=== PATIENT | female | born 1985 | race Caucasian/White ===

== ENCOUNTER 2020-02-21 05:49 | Outpatient (RCR) | payer OTHER ==
[~2020-02-21] VITALS: Ht 157 cm; Wt 100.0 kg
[~2020-02-21 05:49] MED LIST: CHOL40002 PO; CYAN100T IM; D50KC PO; FRS325T PO; MTF500T PO; OXYC-12 PO; PNV1CAPS13 PO; VITAMIN B12 IM; [UNRECOGNIZED DRUG - CODE]; [UNRECOGNIZED DRUG - CODE]; [UNRECOGNIZED DRUG - CODE]
== END 2020-02-21 13:07 | disposition home or self-care (01) ==
LOC: PREOP 05:49
PROVIDERS: ATTEND Obstetrics & Gynecology
DX: Z01.818 Encounter for other preprocedural examination (principal)

== ENCOUNTER 2020-03-10 05:39 | Outpatient (CLI) | payer OTHER ==
[~2020-03-10] VITALS: Ht 157 cm; Wt 100.0 kg
== END 2020-03-10 11:39 | disposition home or self-care (01) ==
LOC: PREOP 05:39
PROVIDERS: ATTEND Obstetrics & Gynecology
DX: Z01.818 Encounter for other preprocedural examination (principal)

== ENCOUNTER 2020-03-18 08:05 | Day surgery (SDC) | payer OTHER, BC ==
[~2020-03-18] VITALS: Ht 157 cm; Wt 100.0 kg
[2020-03-18] VITALS (13 sets, daily range): BP systolic 108–124; BP diastolic 53–85
[2020-03-18] MEDS ORDERED: LEVOFLOXACIN 250 MG/50 ML IVPB 50 ML IV ONE (08:30)
[2020-03-18] MEDS: LACTATED RINGERS 1,000 ML IV PRN ×2 (08:31→12:01)
[2020-03-18 08:52] LABS: BASOPHILS % (AUTO) 0 % (0-10); EOSINOPHILS # (AUTO) 0.1 10^3/uL (0.0-0.3); EOSINOPHILS % (AUTO) 2 % (0-10); HEMATOCRIT 37 % (35-52); HEMOGLOBIN 12.7 G/DL (11.5-16.0); LYMPHOCYTES # (AUTO) 1.7 X 10^3 (1.0-4.0); LYMPHOCYTES % (AUTO) 27 % (12-44); MEAN CORPUSCULAR HEMOGLOBIN 27 PG (25-34); MEAN CORPUSCULAR HGB CONC 34 G/DL (32-36); MEAN CORPUSCULAR VOLUME 79 FL (80-99); MEAN PLATELET VOLUME 9.4 FL (7.4-10.4); MONOCYTES # (AUTO) 0.7 X 10^3 (0.0-1.0); MONOCYTES % (AUTO) 11 % (0-12); NEUTROPHILS # (AUTO) 3.7 X 10^3 (1.8-7.8); NEUTROPHILS % (AUTO) 60 % (42-75); PLATELET COUNT 369 10^3/uL (130-400); WHITE BLOOD COUNT 6.2 10^3/uL (4.3-11.0)
[2020-03-18] MEDS ORDERED: BUP/EPI 0.25% 1:200,000 (MARCAINE) 30 ML VIAL ONE (10:14)
[2020-03-18] MEDS ORDERED: proPOfol 200 MG/20 ML (DIPRIVAN) VIAL IV ONE (10:17)
[2020-03-18] MEDS ORDERED: LIDOCAINE PF 2% 5 ML (XYLOCAINE) VIAL ONE (10:17)
[2020-03-18] MEDS ORDERED: MIDAZOLAM 2 MG/2 ML (VERSED) VIAL ONE (10:17)
[2020-03-18] MEDS ORDERED: SEVOFLURANE (ULTANE) 15 ML INHAL SOLN ONE ×5 (10:17→12:19)
[2020-03-18] MEDS ORDERED: ROCURONIUM 10 MG/ML 5 ML SYRINGE IV ONE (10:17)
[2020-03-18] MEDS ORDERED: fentaNYL INJECTION 100 MCG/2 ML AMP ONE (10:17)
[2020-03-18] MEDS ORDERED: ONDANSETRON 4 MG/2 ML (SDV) Z0FRAN ONE (10:19)
--- NOTE | 2020-03-18 10:19 | Progress Note-Pre Operative ---
Pre-Operative Progress Note H&P Reviewed The H&P was reviewed, patient examined and no changes noted. Date Seen by Provider: Mar 18, 2020 Time Seen by Provider: 10:18 Date H&P Reviewed: Mar 18, 2020 Time H&P Reviewed: 10:18 Pre-Operative Diagnosis: dub/cpp/menorrhagia ISACC DUPREE MD Mar 18, 2020 10:19
--- NOTE | 2020-03-18 10:20 | Progress Note-Post Operative ---
Post-Operative Progess Note Surgeon (s)/Director Of Ancillary Services (s) Surgeon ISACC DUPREE MD Director Of Ancillary Services: Christina Pre-Operative Diagnosis dub/cpp/menorrhagia Post-Operative Diagnosis same with path pending Procedure & Operative Findings Date of Procedure 03/18/20 Procedure Performed/Findings TLH/BS Anesthesia Type GETA Estimated Blood Loss Estimated blood loss (mL): minimal Specimens/Packing Specimens Removed uterus and tubes ISACC DUPREE MD Mar 18, 2020 10:20
[2020-03-18] MEDS ORDERED: KETOROLAC 30 MG/ML VIAL ONE (10:22)
[2020-03-18] MEDS ORDERED: OXYC1TAB87 PO (10:23)
[2020-03-18] MEDS ORDERED: DCS100C PO (10:23)
[2020-03-18] MEDS ORDERED: IBUP-1780 PO (10:23)
--- NOTE | 2020-03-18 10:25 | Discharge Inst-Surgical ---
Discharge Inst-Surgical Depart Medication/Instructions New, Converted or Re-Newed RX: RX on Chart Consults/Follow Up Patient Instructions: as directed Orders & Referrals Follow Up Appt: RTC on Monday at 0900 for staple removal Call to make follow up appt. for patient in 4 weeks. Activity: Rest for 24 hours, than as tolerated. Wound Care: May remove Band-Aid tomorrow. Replace as desired. Keep incisions clean and dry. Wash daily with soap and water. Please call in RX to patient pharmacy. Diet: As tolerated-Clear Liquids only if nauseated. shower or tub bathe as desired. No driving for 24 hours, no alcoholic beverages for 24 hours, and nothing per vagina (no tampons, douching, or intercourse) for 8 weeks. Patient to return to the clinic as soon as possible for: Temperature greater than 101F, Severe Pain, Foul discharge from incision or vagina, Excessive Bleeding (more than a period). Activity Activity as Tolerated: No Diet Discharge Diet: No Restrictions ISACC DUPREE MD Mar 18, 2020 10:25
[2020-03-18] MEDS ORDERED: PROMETHAZINE INJ 25 MG/ML (PHENERGAN) AMP IM PRN (10:30)
[2020-03-18] MEDS ORDERED: ONDANSETRON 4 MG/2 ML (SDV) Z0FRAN IVP PRN ×2 (10:30→12:45)
[2020-03-18] MEDS ORDERED: KETOROLAC 30 MG/ML VIAL IVP SCH (10:30)
[2020-03-18] MEDS ORDERED: ESTROGENS CONJ INJECTION 25 MG in WATER (STERILE) FOR INJECTION 5 ML IV ONE (10:30)
[2020-03-18] MEDS ORDERED: MEPERIDINE (DEMEROL) INJ 100 MG/ML IM PRN (10:30)
[2020-03-18] MEDS ORDERED: INDIGO CARMINE 8 MG/ML 5 ML AMP ONE ×2 (12:05→12:19)
[2020-03-18] MEDS ORDERED: FUROSEMIDE 40 MG/4 ML INJ (LASIX) ONE (12:05)
[2020-03-18] MEDS ORDERED: GLYCOPYRROLATE 0.2 MG/ML (ROBINUL) 2 ML VIAL ONE (12:06)
[2020-03-18] MEDS ORDERED: NEOSTIGMINE 3 MG/3 ML VIAL ONE (12:06)
[2020-03-18] MEDS ORDERED: HYDROmorphone 2 MG/ML VIAL (DILAUDID) ONE (12:14)
[2020-03-18] MEDS ORDERED: ESTROGENS CONJ IV 25 MG/5 ML (PREMARIN) VIAL ONE (12:44)
[2020-03-18] MEDS ORDERED: morphine INJ 10 MG/ML 1ML (SYR OR VIAL) ONE (12:44)
[2020-03-18] MEDS ORDERED: WATER (STERILE) FOR INJECTION 10 ML ONE (12:45)
[2020-03-18] MEDS ORDERED: HYDROmorphone 2 MG/ML VIAL (DILAUDID) IV ONE (12:45)
[2020-03-18] MEDS ORDERED: morphine INJ 10 MG/ML 1ML (SYR OR VIAL) IVP ONE (12:45)
--- NOTE | 2020-03-18 13:30 | NUR ---
VELVET BETTIE admitted to room 3306-1, with an admitting diagnosis of TOTAL LAP HYSTERECTOMY , on 03/18/20 from [facility] via , accompanied by .VELVET ALEXANDRE introduced to surroundings, call light, bed controls, phone, TV, temperature control, lights, meal times, smoking policy, visitor policy, side rail policy, bathrooms and showers. Patient Rights given to patient in the handbook.VELVET ALEXANDRE verbalizes understanding that [facility] is not responsible for the loss or damage to any personal effects or valuables that are kept in the patients posession during their hospitalization. The following Patient Care Plans were discussed with the : Discharge Planning, ,, and . VELVET ALEXANDRE verbalizes understanding of Interdisciplinary Patient Education. Patient and/or family were informed about the Rapid Response Team and its purpose.
--- NOTE | 2020-03-18 13:45 | NUR ---
INITIAL ASSESSMENT COMPLETED, S/O AT BEDSIDE, PT DENIES PAIN OR C/O, SEE INTERVENTIONS FOR DETAILED ASSESSMENTS, PLAN OF CARE DISCUSSED WITH PT AND S/O. WILL MONITOR CLOSELY.
--- NOTE | 2020-03-18 14:45 | NUR ---
REPORT TO MAMADOU HENRIQUEZ.
--- NOTE | 2020-03-18 14:54 | NUR ---
RT CALLED ABOUT NEW IS ORDER.
[2020-03-18] MEDS ORDERED: oxyCODONE/APAP 5/325MG (PERCOCET 5) TABLET ONE (14:57)
[2020-03-18] MEDS: oxyCODONE/APAP 5/325MG (PERCOCET 5) TABLET PO PRN (15:04)
--- NOTE | 2020-03-18 15:04 | NUR ---
PERCOCET 5/325 2 TABS P.O. FOR C/O PELVIC PAIN.
--- NOTE | 2020-03-18 15:36 | OPERATIVE REPORT ---
DATE OF SERVICE: 03/18/2020 PREOPERATIVE DIAGNOSES: Dysfunctional uterine bleeding, menorrhagia and pelvic pain and intrauterine mass. POSTOPERATIVE DIAGNOSES: Dysfunctional uterine bleeding, menorrhagia and pelvic pain and intrauterine mass with pathology pending. OPERATIVE PROCEDURE: Total laparoscopic hysterectomy with bilateral salpingectomies. OPERATIVE DESCRIPTION: With the patient in the supine position under satisfactory general anesthesia, she was repositioned in the dorsal lithotomy position in the [facility] and prepped and draped in the usual fashion for abdominal and vaginal surgery. Weighted speculum placed in posterior fornix of vagina, cervix exposed and grasped anteriorly with single tooth tenaculum. Uterus was sounded to 11 cm with uterine sound. The cervix was then serially dilated with Neel dilators to accommodate a Shelia II manipulator was placed using a 6 mm x 8 cm uterine probe and a 25 mm colpotomy ring. Sutures of #1 Vicryl placed at 3 and 9 o'clock position of the cervix to affix the uterus to the manipulator. Cabezas catheter was placed in the urinary bladder. The tenaculum and speculum were removed. The patient brought in low dorsal lithotomy position. A 12 mm incision was made 9 cm superior to the umbilicus. Veress needle was placed through that incision into the abdominal cavity. Correct placement confirmed with water drop test. The abdomen was insufflated with 2.4 liters of carbon dioxide. The Veress needle was removed and a 12 mm Optiview laparoscopic port placed. The patient was placed in Trendelenburg allowing the bowel spill out of the pelvis. The abdominal wall was transilluminated and 8 mm ports were placed through incisions of those sizes 9 cm lateral to the umbilicus at a level approximately 3 cm above the umbilicus. There were some adhesions of the omentum to the anterior abdominal wall extended pretty much clear across the anterior abdominal wall. These were light filmy. EndoShears were passed through the left lateral port and the adhesions were taken down sharply and bluntly with minimal oozing along the way of doing that with the omentum freed. Then, full access was gained to the pelvis. The uterus was somewhat mottled and boggy appearing. The ovaries were normal in appearance. The fallopian tubes had some overt endometriosis/endosalpingiosis and some degree of clubbing and almost the appearance of hydrosalpinx on both of them in the distal half. There was some obvious endometriosis implants in the ovarian fossae bilaterally. Laparoscope was rotated. The appendix was lying on the pelvic brim. It was normal appearing. It was left in situ. The laparoscope was brought back to the pelvis. Right fallopian tube was grasped and elevated. The mesosalpinx was clamped, cauterized and divided stepwise across to the uteroovarian pedicle, which was then clamped, cauterized and divided with the vessel sealer as well that was continued across the round ligaments and down the broad ligament to the cardinal ligament. Same procedure performed on the left side, allowing for eventual removal of both fallopian tubes with the uterus. Both ovaries were conserved. The anterior lower uterine segment peritoneum was then divided with monopolar trang in place of the vessel sealer, allowing the bladder to be dissected down off the lower uterine segment. Colpotomy incision was then started at the 12 o'clock position onto the colpotomy ring. That incision was continued circumferentially until the entire colpotomy ring was exposed. The uterus with the tubes still attached was extracted through the vagina. Vaginal cuff was closed with a single suture of V-Loc barbed suture starting at the right angle and continuing completely across the vaginal cuff to reapproximate and close hemostasis. Care was taken to ensure inclusion of the uterine vessel pedicles bilaterally. With the vaginal cuff closed, no abnormal remaining pathology and hemostasis assured and sponge and needle counts correct. The laparoscopic portion of the procedure was halted. The operative instruments were removed under direct vision as were the ports. The abdomen was evacuated of the insufflating gas in the process of removing the ports. The skin incisions were stapled after closing the fascia at the supraumbilical incision with a [id number] suture of 2-0 Vicryl. Cystoscopy was performed using sterile water as a distending medium and the patient had been given an amp of indigo carmine and 20 mg of Lasix just as the vaginal cuff was completely closed by the time, the cystoscope was introduced. There was a small amount of urine in the bladder. Both ureteral orifices were seen and both were effluxing freely of pale blue urine. The cystoscope was removed. Speculum placed in vagina. The vaginal cuff was examined. It was completely hemostatic and completely reapproximated. The procedure at this point was complete and terminated. The operative instrument counts were correct. Sponge and needle counts were correct. Blood loss was minimal. The patient tolerated the procedure well and was transferred to the recovery room in stable condition with Cabezas left to dependent drainage. Job ID: [id number] DocumentID: [id number] Dictated Date: 03/18/2020 12:25:11 Brim Stiffener Date: 03/18/2020 15:35:36 Dictated By: ISACC DUPREE MD
--- NOTE | 2020-03-18 16:45 | NUR ---
EMPTIED GUADALUPE. VERY LIGHT BLUE TINGE NOW. 700 CC IN BAG. PT HAS BEEN THINKING ABOUT GETTING GUADALUPE OUT BUT REMINDED OF NEED TO GET UP FREQUENTLY TO VOID WITH IV FLUIDS GOING. STATES WILL PROBABLY KEEP IN UNTIL A.M. SPOUSE AT BEDSIDE.
[2020-03-18] MEDS: D5 LR IV SOLUTION 1,000 ML IV SCH (16:55)
--- NOTE | 2020-03-18 17:00 | NUR ---
PT C/O BEING HOT. REQUESTS SCDS OFF AT THIS TIME.
[2020-03-18] MEDS: KETOROLAC 30 MG/ML VIAL IVP SCH ×2 (18:19→23:39)
--- NOTE | 2020-03-18 18:30 | NUR ---
UP TO SIT IN THE CHAIR. S.O. AT BEDSIDE.
[2020-03-19] MEDS: D5 LR IV SOLUTION 1,000 ML IV SCH (00:47)
[2020-03-19] MEDS: oxyCODONE/APAP 5/325MG (PERCOCET 5) TABLET PO PRN ×2 (00:56→08:44)
[2020-03-19] MEDS ORDERED: diphenhydrAMINE 25 MG TAB (BENADRYL) PO ONE (00:58)
[2020-03-19] MEDS ORDERED: diphenhydrAMINE 25 MG TAB (BENADRYL) PO PRN (01:00)
[2020-03-19 04:50] VITALS: BP 100/63
[2020-03-19] MEDS: KETOROLAC 30 MG/ML VIAL IVP SCH (06:27)
--- NOTE | 2020-03-19 08:00 | NUR ---
Up to BR - voided 150ml. Plan discharge.
[2020-03-19 08:45] VITALS: BP 111/63
[2020-03-19] MEDS ORDERED: DOCUSATE SODIUM 100 MG (COLACE) CAP PO SCH (09:00)
[2020-03-19 09:50] VITALS: BP 111/63
--- NOTE | 2020-03-19 09:50 | NUR ---
Verbal and written instructions given to pt with her verbalizing understanding. Follow up appointment 03/19 and then will make 4 week appointment at tomorrow's visit.
--- NOTE | 2020-03-19 09:50 | NUR ---
Discharge to home per wheelchair. Significant other accompanying.
[2020-03-19] MEDS ORDERED: IBUPROFEN 800 MG (MOTRIN) TAB PO SCH (12:00)
--- NOTE | 2020-03-19 13:56 | Anesthesia-General Post-Op ---
General Patient Condition Mental Status/LOC: Same as Preop Cardiovascular: Satisfactory Nausea/Vomiting: Absent Respiratory: Satisfactory Pain: Controlled Complications: Absent Post Op Complications Complications None Follow Up Care/Instructions Patient Instructions None needed. Anesthesia/Patient Condition Patient Condition Patient was seen this morning prior to her discharge in post rounds and she was doing well, no complaints, stable vital signs, no apparent adverse anesthesia problems. TIFFANIE LIVE DO Mar 19, 2020 13:56
--- NOTE | 2020-03-19 21:23 | Progress Note ---
Standard Progress Note Progress Notes/Assess & Plan Date Seen by a Provider: Mar 19, 2020 Time Seen by a Provider: 08:00 Progress/Assessment & Plan this patient is without complaint. She is ambulating, tolerating oral intake well and has had her Cabezas catheter removed. She has not voided yet. She denies chest pain, denies shortness of breath, denies nausea vomiting, and denies headache. Vital Signs Date Time Temp Pulse Resp B/P (MAP) Pulse Ox O2 Delivery O2 Flow Rate FiO2 03/19/20 09:50 37.9 80 16 111/63 96 Room Air 03/19/20 08:45 37.9 80 16 111/63 (79) 96 03/19/20 04:50 37.2 78 18 100/63 (75) 98 Room Air 03/18/20 23:39 36.3 83 18 108/69 (82) 97 Room Air I & O 03/19/20 07:00 Intake Total 6240 ml Output Total 4475 ml Balance 1765 ml vital signs are stable. Patient is afebrile. The abdomen is benign. Extreme show clubbing cyanosis. There is no Homans sign. Assessment and plan postoperative day number 1 doing well. Plan is for discharge home when patient has demonstrated adequate bladder function. Follow- up will be in clinic Final Diagnosis DUB/chronic pelvic pain/menorrhagia ISACC DUPREE MD Mar 19, 2020 21:23
== END 2020-03-19 09:50 | disposition home or self-care (01) ==
LOC: SDC 08:05 → WS 14:34 → SDC 03-19 09:50
PROVIDERS: ATTEND Obstetrics & Gynecology
DX: N92.0 Excessive and frequent menstruation with regular cycle (principal); D25.1 Intramural leiomyoma of uterus; D25.0 Submucous leiomyoma of uterus; N80.2 Endometriosis of fallopian tube; N80.1 Endometriosis of ovary; K66.0 Peritoneal adhesions (postprocedural) (postinfection); N83.8 Other noninflammatory disorders of ovary, fallopian tube and broad ligament; Z88.0 Allergy status to penicillin; F41.9 Anxiety disorder, unspecified; E66.9 Obesity, unspecified; Z68.41 Body mass index [BMI] 40.0-44.9, adult; Z11.2 Encounter for screening for other bacterial diseases
CPT/HCPCS: 36415; 84703; 85025; 86850; 86900; 86901; 87081; 88307; 94664